=== PATIENT | female | born 1980 | race Caucasian/White ===

== ENCOUNTER 2018-06-08 07:30 | Day surgery (SDC) | payer OTHER ==
[2018-06-08 11:40] VITALS: BP 95/60; PULSE 68; TEMP 97.8
--- NOTE | 2018-06-08 11:40 | NUR ---
The patient arrived back to [facility] from the recovery room at this time. The patient appears alert and oriented and report minimal discomfort at this time. The patient's post operative vital signs were started at this time. The patient has some water in PACU and appears to have tolerated it well. The patient requests to try some sprite and red jello at this time. The patient's mother was brought back to be at her bedside. Call light is within reach. Will continue to monitor the patient.
--- NOTE | 2018-06-08 11:50 | NUR ---
The patient ambulated to the bathroom with the stand by assist and appeared to tolerate the activity well. The patient voided without difficulty. The patient's mother remains at her bedside. Will continue to monitor the patient.
[2018-06-08 11:55] VITALS: BP 106/54; PULSE 73
[2018-06-08 12:10] VITALS: BP 120/76; PULSE 64
--- NOTE | 2018-06-08 12:10 | NUR ---
The patient appears to be resting comfortably on the cart at this time. Vital signs appear stable. The patient's mother remains at her bedside. The patient appears to be tolerating the food and drink well. Will continue to monitor the patient.
[2018-06-08 12:25] VITALS: BP 110/72; PULSE 58
--- NOTE | 2018-06-08 12:25 | NUR ---
The patient denies wanting any further to eat or drink at this time. The patient continues to report minimal discomfort. Will continue to monitor the patient.
[2018-06-08 12:55] VITALS: BP 112/57; PULSE 60
--- NOTE | 2018-06-08 12:55 | NUR ---
Discharge instructions were reviewed with the patient and her mother at this time. They both verbalized understanding and have no questions for the nurse at this time. The patient's IV to her left forearm was removed and a pressure dressing was applied to the site. The nurse instructed the patient to get dressed and notify the staff when she is ready to be escorted out.
--- NOTE | 2018-06-08 13:00 | NUR ---
The patient was escorted out via ambulation to a private vehicle by MANSOOR Buchanan. The patient's belongings and discharge paperwork were sent with her. The patient's mother is present to drive her home.
== END 2018-06-08 13:00 | disposition home or self-care (01) ==
LOC: SDCO 07:30
DX: N20.0 Calculus of kidney (principal); E83.59 Other disorders of calcium metabolism; Z87.442 Personal history of urinary calculi; Z79.899 Other long term (current) drug therapy; R35.0 Frequency of micturition; R35.1 Nocturia; R39.198 Other difficulties with micturition; R10.9 Unspecified abdominal pain; F17.210 Nicotine dependence, cigarettes, uncomplicated
CPT/HCPCS: C1769; C2617; J0690; J1100; J1170; J1885; J2250; J2405; J2704; J3010; J7120; Q9967

== ENCOUNTER 2018-06-19 07:04 | Day surgery (SDC) | payer OTHER ==
[~2018-06-19] VITALS: Ht 162.6 cm; Wt 59.4 kg
[2018-06-19] VITALS (13 sets, daily range): BP systolic 91–115; BP diastolic 49–75; PULSE 65–103; TEMP 97.7–98.3
[2018-06-19] MEDS ORDERED: PYRIDIUM 100MG100 MG PO (07:55)
[2018-06-19] MEDS ORDERED: AMITRIPTYLINE H10 M1 PO (07:56)
[2018-06-19] MEDS ORDERED: NORCO 325 MG-51 TAB PO (07:57)
[2018-06-19] MEDS ORDERED: CEPHALEXIN500 M1 PO (07:58)
--- NOTE | 2018-06-19 08:06 | NUR ---
To room 7 at 0710 accompanied by spouse and oriented to room. Call light in reach.
--- NOTE | 2018-06-19 11:00 | NUR ---
Patient up from OR by bed. Drowsy, oriented x3. Family in room. Patient and family oriented to room. States that she feels like she needs to urinate, is on a bedpan. Patient states that she would rather get up into restroom to urinate but will call when she feels more able to ambulate. Denies further needs at this time.
--- NOTE | 2018-06-19 14:10 | NUR ---
Patient up to restroom, steady gait. Patient states that it manning when urinating. Voided red-tinged urine.
--- NOTE | 2018-06-19 18:01 | NUR ---
Patient in bed. States AZO helps with burning sensation with urination, however she still has pain when urinating. Continues to have red-tinged urine. Denies further needs at this time. Will report off to parking lot chauffeur.
--- NOTE | 2018-06-19 20:00 | NUR ---
Pt resting in bed with family at bedside. Reports pain is better, rating at 5/10. Assessment completed, lung sounds clear, abdominal sounds active all quadrants. IVF infusing at 125 mls/hr into right wrist. No further needs at this time. Will notify nurse if pain worsens.
--- NOTE | 2018-06-20 01:45 | NUR ---
Pt up to use the restroom, reports that she missed the hat in the toilet, urine was unable to be measured.
[2018-06-20 03:13] VITALS: BP 94/54; PULSE 72; TEMP 98.3
--- NOTE | 2018-06-20 05:41 | NUR ---
Pt slept most of the night. VOided- however missed the hat, unable to measure output. Given pain medicatino around midnight, has not needed anything since. Refusing toradol. Pt has no further needs at this time.
--- NOTE | 2018-06-20 08:38 | NUR ---
Patient sitting up in bed. Requesting medication for pain rating 8/10. One tab percocet, Azo & Levsin per orders. Patient has ordered breakfast encouraged water intake. Her urine in very hazy & tea colored. Ivf per orders. Her significant other at bedside. Wilfrid camacho.
[2018-06-20 08:39] VITALS: BP 105/54; PULSE 74; TEMP 98
[2018-06-20 11:52] VITALS: BP 92/44; PULSE 73; TEMP 98.2
--- NOTE | 2018-06-20 12:59 | NUR ---
Patient ready for discharge. Dr. Wilson rounded. Orders obtained. Patient dressed. Int DC. We reviewed all discharge paperwork. Script for Percocet,flomax,& levsin sent with patient & we reviewed home medication & medication safety. Patient denies questions or concerns. She has had kidney stones in the past. Patient ambulated out with all belongings
== END 2018-06-20 13:01 | disposition home or self-care (01) ==
LOC: SDCO 07:04 → SURG 11:05 → SDCO 11:15
DX: N20.0 Calculus of kidney (principal); F17.210 Nicotine dependence, cigarettes, uncomplicated; G43.909 Migraine, unspecified, not intractable, without status migrainosus; Z79.899 Other long term (current) drug therapy
CPT/HCPCS: OP; C1769; C1894; C2617; J0690; J1100; J1885; J2250; J2405; J2704; J3010; J7120